=== PATIENT | female | born 1960 | race Asian ===

== ENCOUNTER 2017-01-23 10:12 | Emergency (ER) | payer MEDICAID ==
[~2017-01-23] VITALS: Ht 162.6 cm; Wt 68.0 kg
[2017-01-23 10:27] VITALS: Ht 162.6 cm; Wt 68.0 kg
[2017-01-23 12:33] LABS: URINE BLOOD (Dip) POC 1+ (NEGATIVE)
[2017-01-23 12:53] LABS: URINE BLOOD (Dip) POC Trace-intact (NEGATIVE)
[2017-01-23] MEDS ORDERED: HYDR-906 PO (13:21)
[2017-01-23] MEDS ORDERED: IBUP-1542 PO (13:21)
[2017-01-23] MEDS ORDERED: CEPH-443 PO (13:21)
[2017-01-23] MEDS ORDERED: SULF1TAB31 PO (13:21)
[2017-01-23] MEDS ORDERED: PHEN-537 PO (13:22)
[2017-01-23 13:28] VITALS: BP 128/66; PULSE 76; RESP 18; TEMP 98.2
--- NOTE | 2017-01-23 13:30 | ERD ---
ER Documentation Chief Complaint Date/Time DATE: 01/23/17 TIME: 13:24 Chief Complaint PAINFUL URINATION X 1 WEEK , FEVER X 4 DAYS HPI Patient is a 65-year-old female presents to the emergency department with painful urination 1 week. Patient states she has burning pain when urinating. Patient also states she had a low-grade temperature over the last 4 days. Patient reports temperature of 99 Fahrenheit. Patient states she last took Advil at 2 PM yesterday. Patient did not take any antipyretics today. Patient denies any frequency, urgency or hematuria. Patient denies any abdominal pain, nausea, vomiting. Patient states she does feel as if there is a "small ball" within her vagina which is extremely painful to touch. She denies any vaginal discharge or excessive vaginal bleeding. Patient also complaining of excessive vaginal dryness. ROS All systems reviewed and are negative except as per history of present illness. Medications Home Meds Active Scripts Phenazopyridine Hcl* (Pyridium*) 100 Mg Tab, 100 MG PO TID, #12 TAB Prov:DEISI SALAZAR-C 01/23/17 Hydrocodone/Acetaminophen ([place] 5-325 Tablet) 1 Each Tablet, 1 TAB PO Q6H Y for PAIN, #7 TAB Prov:DEISI SALAZAR-C 01/23/17 Ibuprofen* (Motrin*) 600 Mg Tab, 600 MG PO Q6, #30 TAB Prov:DEISI SALAZAR-C 01/23/17 Cephalexin* (Keflex*) 500 Mg Capsule, 500 MG PO QID for 7 Days, CAP Prov:DEISI SALAZAR-C 01/23/17 Sulfamethoxazole/Trimethoprim* (Bactrim Ds* Tablet) 1 Each Tablet, 1 TAB PO BID , #14 TAB Prov:DEISI SALAZAR-C 01/23/17 PMhx/Soc History of Surgery: No Anesthesia Reaction: No Hx Neurological Disorder: No Hx Respiratory Disorders: No Hx Cardiac Disorders: No Hx Psychiatric Problems: No Hx Miscellaneous Medical Probl: No Hx Alcohol Use: No Hx Substance Use: No Hx Tobacco Use: No FmHx Family History: No diabetes Physical Exam Vitals Vital Signs Date Time Temp Pulse Resp B/P Pulse Ox O2 Delivery O2 Flow Rate FiO2 01/23/17 13:28 98.2 76 18 128/66 98 Room Air 5/8/17 10:27 99.8 90 18 131/68 98 Physical Exam GENERAL: Well-developed, well-nourished female. Appears in no acute distress. HEAD: Normocephalic, atraumatic. EYES: Pupils are equally reactive bilaterally. EOMs grossly intact. No conjunctival erythema. ENT: Moist mucous membranes. No uvula deviation. No kissing tonsils. NECK: Supple. No meningismus. Normal range of motion of the neck. LUNG: Clear to auscultation bilaterally. No rhonchi, wheezing, rales or coarse breath sounds. HEART: Regular rate and rhythm. No murmurs, rubs or gallops. ABDOMEN: No scars, ecchymosis or rashes noted. Soft, nondistended. Tender to palpation in the suprapubic region. Positive bowel sounds in all four quadrants. No rebound tenderness, no guarding. (-) McBurney's point tenderness. No CVA tenderness. FEMALE GENITALIA: Normal external female genitalia. Normal vaginal mucosal erythematous without any lesions. 2 cm circular mass noted in the 4 o'clock position. No active bleeding or drainage noted. Tender to touch. No fluctuance or induration noted. BACK: No midline tenderness. EXTREMITIES: Equal pulses bilaterally. No peripheral clubbing, cyanosis or edema. No unilateral leg swelling. NEUROLOGIC: Alert and oriented. Moving all four extremities without any difficulty. Normal speech. Steady gait. SKIN: Normal color. Warm and dry. No rashes or lesions. Results 24 hrs Laboratory Tests Test 01/23/17 12:34 01/23/17 12:54 Bedside Urine pH (LAB) 5.5 5.5 Bedside Urine Protein (LAB) Negative Negative Bedside Urine Glucose (UA) Negative Negative Bedside Urine Ketones (LAB) Negative Negative Bedside Urine Blood 1+ Trace-intact Bedside Urine Nitrite (LAB) Negative Negative Bedside Urine Leukocyte Esterase (L Negative Negative Procedures/MDM MEDICAL DECISION MAKING: This is a 56-year-old female who presents with dysuria and intermittent fevers. Vital signs were reviewed. Patient was afebrile. U dip was negative for acute infection. 1+ hematuria was noted. Pelvic exam did show signs of a possible Bartholin's cyst abscess. At this time there is no indication for incision and drainage. Patient was advised she will need to follow-up with SOFTWARE MANAGER for further management of her symptoms. Given these findings, the patient's presentation is most consistent with dysuria and Bartholin's cyst abscess. I have a much lower clinical concern for UTI, pyelonephritis, nephrolithiasis, appendicitis, diverticulitis, constipation, lipoma. PRESCRIPTIONS: Pyridium, Keflex, Bactrim, ibuprofen, Azusa DISCHARGE: At this time, patient is stable for discharge and outpatient management. Sitz baths discussed with the patient. I have instructed the patient to follow-up with his/her primary care physician in 1-2 days. She was advised that she will need to follow-up with an SOFTWARE MANAGER in the next 1-2 days. Referral list provided. I have instructed the patient to promptly return to the ER at any time for any new or worsening symptoms including increased pain, fever, nausea, vomiting, urinary changes or weakness. The patient and/or family expressed understanding of and agreement with this plan. All questions were answered. Home care instructions were provided. Departure Diagnosis: Primary Impression: Bartholin's gland abscess Additional Impression: Dysuria Condition: Stable Patient Instructions: Bartholin's Cyst (I And D), Dysuria Referrals: [facility] YOU HAVE RECEIVED A MEDICAL SCREENING EXAM AND THE RESULTS INDICATE THAT YOU DO NOT HAVE A CONDITION THAT REQUIRES URGENT TREATMENT IN THE EMERGENCY DEPARTMENT. FURTHER EVALUATION AND TREATMENT OF YOUR CONDITION CAN WAIT UNTIL YOU ARE SEEN IN YOUR DOCTORS OFFICE WITHIN THE NEXT 1-2 DAYS. IT IS YOUR RESPONSIBILITY TO MAKE AN APPOINTMENT FOR FOLOW-UP CARE. IF YOU HAVE A PRIMARY DOCTOR --you should call your primary doctor and schedule an appointment IF YOU DO NOT HAVE A PRIMARY DOCTOR YOU CAN CALL OUR PHYSICIAN REFERRAL HOTLINE AT IF YOU CAN NOT AFFORD TO SEE A PHYSICIAN YOU CAN CHOSE FROM THE FOLLOWING [facility] CLINICS [facility] [address] [facility] [address] [facility] [address] [facility] [address] [facility]. [facility] [address] [facility]. [facility]. [address] [facility]. [facility] YOU HAVE RECEIVED A MEDICAL SCREENING EXAM AND THE RESULTS INDICATE THAT YOU DO NOT HAVE A CONDITION THAT REQUIRES URGENT TREATMENT IN THE EMERGENCY DEPARTMENT. FURTHER EVALUATION AND TREATMENT OF YOUR CONDITION CAN WAIT UNTIL YOU ARE SEEN IN YOUR DOCTORS OFFICE WITHIN THE NEXT 1-2 DAYS. IT IS YOUR RESPONSIBILITY TO MAKE AN APPOINTMENT FOR FOLOW-UP CARE. IF YOU HAVE A PRIMARY DOCTOR --you should call your primary doctor and schedule and appointment IF YOU DO NOT HAVE A PRIMARY DOCTOR YOU CAN CALL OUR PHYSICIAN REFERRAL HOTLINE AT . IF YOU CAN NOT AFFORD TO SEE A PHYSICIAN YOU CAN CHOSE FROM THE FOLLOWING [facility] INSTITUTIONS: [facility] [address] [place] [address] [facility] [address] [place] [address] [facility] [address] [place] [address] SOFTWARE MANAGER [place] [address] [facility] [address] [place] [address] OFFICE FAX ALEE STALLWORTH [address] [place], [place] [id number] [facility] [address] [place] [address] JUAN A PETERSENREVA [address] [facility], [address], [facility] [address] [address] [address] [place] [address] [facility] [address] [place], [place] [id number] [address] [facility] [id number] [address], [facility] [address] [address] [facility] [address] [facility] [address], [facility] [address] [address] [address] [place] [address] Additional Instructions: Call your primary care doctor/OBGYN TOMORROW for an appointment during the next 1-2 days.See the doctor sooner or return here if your condition worsens before your appointment time. See OBGYN for further management. See referral list. DEISI SALAZAR PA-C January 23, 2017 13:30
== END 2017-01-23 13:29 | disposition home or self-care (01) ==
LOC: FTE 10:12
DX: N75.1 Abscess of Bartholin's gland (principal)
CPT/HCPCS: 81003; 99284

== ENCOUNTER 2017-01-29 10:44 | Inpatient (IN) | payer MEDICAID ==
[~2017-01-29] VITALS: Ht 162.6 cm; Wt 67.0 kg
[~2017-01-29 10:44] MED LIST: CEPH-443 PO; HYDR-906 PO; IBUP-1542 PO; PHEN-537 PO; SULF1TAB31 PO
[2017-01-29] MEDS ORDERED: SOD CHLORIDE 0.9% 500 ML IV STA (11:25)
[2017-01-29] MEDS ORDERED: METOCLOPRAMIDE 10 MG INJ IV STA (11:25)
--- NOTE | 2017-01-29 11:34 | ERD ---
ER Documentation Chief Complaint Date/Time DATE: 01/29/17 TIME: 11:31 Chief Complaint "i cant walk i cant sleep, entire body hurts and headache" normal neuro HPI Patient is a 56-year-old female who presents with sudden onset, constant, severe headache for 3 days. Patient reports several episodes of vomiting, most recently 2 episodes yesterday, nonbloody, nonbilious. Patient denies diarrhea. Patient reports fever 1 week ago associated with cough. She states that fever and cough have not resolved. She denies chest pain, shortness of breath, diarrhea, abdominal pain. She denies dysuria, hematuria. She reports neck stiffness. She also reports back pain radiating to bilateral legs. ROS All systems reviewed and are negative except as per history of present illness. Medications Home Meds Active Scripts Ibuprofen* (Motrin*) 600 Mg Tab, 600 MG PO Q6, #30 TAB Prov:DEISI SALAZAR PA-C 01/23/17 Discontinued Scripts Phenazopyridine Hcl* (Pyridium*) 100 Mg Tab, 100 MG PO TID, #12 TAB Prov:DEISI SALAZAR PA-C 01/23/17 Hydrocodone/Acetaminophen ([place] 5-325 Tablet) 1 Each Tablet, 1 TAB PO Q6H Y for PAIN, #7 TAB Prov:DEISI SALAZAR PA-C 01/23/17 Cephalexin* (Keflex*) 500 Mg Capsule, 500 MG PO QID for 7 Days, CAP Prov:DEISI SALAZAR PA-C 01/23/17 Sulfamethoxazole/Trimethoprim* (Bactrim Ds* Tablet) 1 Each Tablet, 1 TAB PO BID , #14 TAB Prov:DEISI SALAZAR PA-C 01/23/17 Allergies Allergies: Coded Allergies: No Known Allergy (Unverified , 01/29/17) PMhx/Soc Past medical history: None Past surgical history: None Social history: Denies tobacco or alcohol. History of Surgery: No Anesthesia Reaction: No Hx Neurological Disorder: No Hx Respiratory Disorders: No Hx Cardiac Disorders: No Hx Psychiatric Problems: No Hx Miscellaneous Medical Probl: No Hx Alcohol Use: No Hx Substance Use: No Hx Tobacco Use: No FmHx Family History: No coronary disease, No diabetes Physical Exam Vitals Vital Signs Date Time Temp Pulse Resp B/P Pulse Ox O2 Delivery O2 Flow Rate FiO2 01/29/17 12:27 98.2 94 24 138/77 100 Room Air 01/29/17 10:49 98.7 92 18 126/83 99 Physical Exam Const: Alert, mild distress Head: Atraumatic Eyes: Normal Conjunctiva, no pallor, no icterus ENT: Normal External Ears, Nose and Mouth. Moist mucous membranes Neck: Slightly limited range of motion. Neck stiffness. Resp: Clear to auscultation bilaterally, no wheezes, no rales Cardio: Regular rate and rhythm, no murmurs Abd: Soft, non tender, non distended. Normal bowel sounds Skin: No petechiae or rashes Back: No midline or flank tenderness Ext: No cyanosis, or edema Neur: Awake and alert, cranial nerves II through XII intact bilaterally, strength incision full in 4 extremities. Psych: Normal Mood and Affect Result Diagram: 01/29/17 1150 01/29/17 1150 Results 24 hrs Laboratory Tests Test 01/29/17 11:50 01/29/17 13:48 01/29/17 14:09 White Blood Count 9.810^3/ul Red Blood Count 5.0710^6/ul Hemoglobin 13.1g/dl Hematocrit 40.7% Mean Corpuscular Volume 80.3fl Mean Corpuscular Hemoglobin 25.8pg Mean Corpuscular Hemoglobin Concent 32.2g/dl Red Cell Distribution Width 13.3% Platelet Count 52080^3/UL Mean Platelet Volume 10.8fl Neutrophils % 62.1% Lymphocytes % 29.6% Monocytes % 4.3% Eosinophils % 2.9% Basophils % 0.3% Nucleated Red Blood Cells % 0.0/100WBC Neutrophils # 6.110^3/ul Lymphocytes # 2.910^3/ul Monocytes # 0.410^3/ul Eosinophils # 0.310^3/ul Basophils # 0.010^3/ul Nucleated Red Blood Cells # 0.010^3/ul Prothrombin Time 12.4Sec Prothrombin Time Ratio 1.0 INR International Normalized Ratio 0.92 Activated Partial Thromboplast Time 24.4Sec Sodium Level 138mmol/L Potassium Level 3.7mmol/L Chloride Level 101mmol/L Carbon Dioxide Level 28mmol/L Anion Gap 13 Blood Urea Nitrogen 12mg/dl Creatinine 0.70mg/dl Glucose Level 137mg/dl Calcium Level 9.1mg/dl Serum HCG, Qualitative NEGATIVE CSF Tubes Submitted 4 CSF Volume 3.5ml CSF Appearance SLIGHTLY HAZY CSF Color COLORLESS CSF WBC 1274/uL CSF RBC 0/uL CSF Cell Count Tube # TUBE#4 CSF Total Cells Counted 100 CSF Neutrophils % 4% CSF Lymphocytes % 87% CSF Monocytes % 9% CSF Crenated Cells 0% CSF Glucose 64mg/dl CSF Total Protein 369mg/dl Urine Color LT. YELLOW Urine Clarity CLEAR Urine pH 6.0 Urine Specific [place] 1.010 Urine Ketones NEGATIVE Urine Nitrite NEGATIVE Urine Bilirubin NEGATIVE Urine Urobilinogen 0.2 E.U./dL Urine Leukocyte Esterase NEGATIVE Urine Microscopic RBC 2-5/HPF Urine Microscopic WBC 5-10/HPF Urine Epithelial Cells FEW Urine Bacteria MANY Urine Mucus MANY Urine Hemoglobin TRACE Urine Glucose NEGATIVE% Urine Total Protein NEGATIVE Current Medications Medications (Trade) Dose Ordered Sig/Niurka Route PRN Reason Start Time Stop Time Status Last Admin Dose Admin Sodium Chloride (NS) 500 ml @ 500 mls/hr Q1H STAT IV 01/29/17 11:25 01/29/17 12:24 DC 01/29/17 12:27 Metoclopramide HCl 10 mg 10 mg ONCE STAT IV 01/29/17 11:25 01/29/17 11:29 DC 01/29/17 12:15 Ceftriaxone Sodium (Rocephin) 50 ml @ 100 mls/hr ONCE ONCE IVPB 01/29/17 15:30 01/29/17 15:59 Morphine Sulfate (morphine) 4 mg ONCE STAT IV 01/29/17 15:09 01/29/17 15:10 DC 01/29/17 15:34 Ondansetron HCl (Zofran Inj) 4 mg BRIDGE ORDER PRN IV NAUSEA AND/OR VOMITING 01/29/17 15:30 01/30/17 15:29 Acetaminophen (Tylenol Tab) 650 mg ER BRIDGE PRN PO MILD PAIN/FEVER 01/29/17 15:30 01/30/17 15:29 Procedures/MDM Lumbar Puncture by me: Patient consented, time out performed, sterilely prepped/draped, anesthetized locally. Anesthesia: 1% lidocaine locally Location: L3-4 interspace Technique: 20 gauge needle with stylet for entry and removal of needle Results: Clear CSF fluid, 4 cc No post procedure complications, bleeding, numbness or weakness. MDM: Patient is a 56-year-old female who presents with severe headache for the last 3 days. Patient is also experienced neck stiffness, fever and vomiting. CT scan was done prior to LP, and is unremarkable. LP shows elevated WBC count in the cerebrospinal fluid with elevated protein, no RBCs, and normal glucose. This is likely due to a viral meningitis, but I cannot exclude atypical bacterial infection. The patient was given 2 g of ceftriaxone, and will be admitted to the hospital pending CSF cultures. The patient's urine did have a few leukocytes and a large number of bacteria. Blood and urine cultures were sent prior to antibiotic administration. The patient does not have signs of sepsis. The patient states that her headache is somewhat improved after receiving IV fluids and Reglan. Departure Diagnosis: Primary Impression: Meningitis Condition: Stable DANIELA BIRD MD January 29, 2017 11:34
[2017-01-29 12:04] LABS: ADD SCAN DIFF NO
[2017-01-29 12:06] LABS: BASOPHILS % 0.3 % (0.0-2.0); EOSINOPHILS # 0.3 10^3/ul (0.0-0.5); EOSINOPHILS % 2.9 % (0.0-7.0); HEMATOCRIT 40.7 % (37.0-47.0); HEMOGLOBIN 13.1 g/dl (12.0-16.0); LYMPHOCYTES # 2.9 10^3/ul (0.8-2.9); LYMPHOCYTES % 29.6 % (15.0-51.0); MEAN CORPUSCULAR HEMOGLOBIN 25.8 pg (29.0-33.0); MEAN CORPUSCULAR HGB CONC 32.2 g/dl (32.0-37.0); MEAN CORPUSCULAR VOLUME 80.3 fl (82.0-101.0); MEAN PLATELET VOLUME 10.8 fl (7.4-10.4); MONOCYTE # 0.4 10^3/ul (0.3-0.9); MONOCYTES % 4.3 % (0.0-11.0); NEUTROPHIL # 6.1 10^3/ul (1.6-7.5); NEUTROPHILS % 62.1 % (39.0-77.0); PLATELET COUNT 237 10^3/UL (140-415); RED BLOOD COUNT 5.07 10^6/ul (4.20-5.40); RED CELL DISTRIBUTION WIDTH 13.3 % (11.5-14.5); WHITE BLOOD COUNT 9.8 10^3/ul (4.8-10.8)
--- NOTE | 2017-01-29 12:09 | RADRPT ---
PROCEDURE: XR Chest. CLINICAL INDICATION: chest pain, headache TECHNIQUE: Single frontal view of the chest was obtained COMPARISON: None FINDINGS: The heart and mediastinum are within normal limits. The lungs are clear. There is no pleural effusion or pneumothorax. RPTAT: AA IMPRESSION: No acute disease. .Victoriano Mattson MD, MD Date Time Electronically viewed and signed by .Victoriano Mattson MD, on 01/29/2017 12:09 .S/
--- NOTE | 2017-01-29 12:15 | RADRPT ---
PROCEDURE: CT Brain without contrast. CLINICAL INDICATION: Headaches. TECHNIQUE: A CT of the brain was performed on multidetector high-resolution CT scanner utilizing a xial sections from the skull base through the vertex without contrast. One or more of the following dose reduction techniques were used: Automated exposure control, Adjustment of the mA and/or kV acc ording to patient size, and/or use of iterative reconstruction technique. DOSE: CTDI = 45 mGy and the DLP = 720 mGy-cm. COMPARISON: None available FINDINGS: 3 mm right anterior temporal extra-axial calcification within the right middle cranial fossa. No acute intracranial hemorrhage, significant mass effect or midline shift. The sandoval-white different iation is grossly preserved. The ventricles are normal in size for age. No significant opacification of the visualized paranasal sinuses or mastoids. IMPRESSION: No acute intracranial findings. 3 mm right anterior temporal extra-axial calcification within the right middle cranial fossa. 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 However, if symptoms persist consider outpatient brain MRI with an d without contrast for further evaluation. RPTAT: AA .Polo Acuna MD, MD Date Time Electronically viewed and signed by .Polo Acuna MD, MD on 01/29/2017 12:15 .T/
[2017-01-29 12:26] LABS: INR 0.92; PROTIME 12.4 Sec (12.2-14.2)
[2017-01-29 12:27] VITALS: TEMP 98.2
[2017-01-29 12:27] LABS: PARTIAL THROMBOPLASTIN TIME 24.4 Sec (25.0-35.0)
[2017-01-29 12:37] LABS: CALCIUM 9.1 mg/dl (8.4-10.2); CREATININE 0.7 mg/dl (0.44-1.00); POTASSIUM 3.7 mmol/L (3.5-5.1)
[2017-01-29 14:24] LABS: GLUCOSE,CSF 64 mg/dl (50-80)
[2017-01-29 14:31] LABS: ADD UMIC YES; URINE BILIRUBIN (Dip) NEGATIVE (NEGATIVE); URINE BLOOD (Dip) TRACE (NEGATIVE); URINE COLOR LT. YELLOW (YELLOW); URINE GLUCOSE (Dip) NEGATIVE (NEGATIVE); URINE KETONES (Dip) NEGATIVE (NEGATIVE); URINE LEUKOCYTE ESTERASE (Dip) NEGATIVE (NEGATIVE); URINE NITRITE (Dip) NEGATIVE (NEGATIVE); URINE TOTAL PROTEIN (Dip) NEGATIVE (NEGATIVE); URINE UROBILINOGEN (Dip) 0.2 E.U./dL (0.1-1.0)
[2017-01-29 14:49] LABS: # OF CELLS COUNTED 100
[2017-01-29 14:53] LABS: BACTERIA,URINE MANY; MUCUS,URINE MANY
[2017-01-29 14:57] LABS: CSF COLOR COLORLESS
[2017-01-29 15:01] LABS: CSF VOLUME 3.5 ml
[2017-01-29 15:02] LABS: %CREANATED RBC CSF 0 %; CSF#TUBE COUNT TUBE#4; CSF#TUBES REC'D 4
[2017-01-29] MEDS ORDERED: morphine 4 MG/ML VIAL IV STA (15:09)
[2017-01-29] MEDS ORDERED: ACETAMINOPHEN 325 MG TAB PO PRN (15:30)
[2017-01-29] MEDS ORDERED: CEFTRIAXONE 2 GM/50 ML (PMX) 50 ML IVPB ONE (15:30)
[2017-01-29] MEDS ORDERED: ONDANSETRON 4 MG INJ IV PRN ×2 (15:30→17:00)
[2017-01-29 17:00] VITALS: Ht 162.6 cm; Wt 67.0 kg
[2017-01-29] MEDS ORDERED: ACETAMINOPHEN 650 MG SUPP PR PRN (17:00)
[2017-01-29] MEDS ORDERED: HYDROCODONE/APAP (5/325) TAB PO PRN ×2 (17:00)
[2017-01-29] MEDS ORDERED: MAGNESIUM HYDROXIDE 30ML CUP PO PRN (17:00)
[2017-01-29] MEDS ORDERED: ACET/BUTAL/CAFF TAB PO PRN (17:00)
[2017-01-29] MEDS ORDERED: NACL 0.9% 3 ML SYG IV SCH (17:00)
[2017-01-29] MEDS ORDERED: DOCUSATE SODIUM 100 MG CAP PO PRN (17:00)
[2017-01-29] MEDS ORDERED: BISACODYL 10 MG SUPP PR PRN (17:00)
--- NOTE | 2017-01-29 17:04 | HP ---
Date/Time of Note Date/Time of Note DATE: 01/29/17 TIME: 16:59 Assessment/Plan VTE Prophylaxis VTE Prophylaxis Intervention: heparin Assessment/Plan Chief Complaint/Hosp Course Impression and plan 1. Meningitis. Patient seen with elevated protein and white blood cell in lumbar tap with normal glucose. Likely viral meningitis. Rule out atypical bacterial meningitis. Will get ID consult to follow. Off antibiotics at this time however it is noted the patient did receive Rocephin in the ER. Continue with analgesics as well as IV hydration as needed. Will provide with analgesics as well. 2. History of seasonal allergies. She will be resumed on her Claritin 3. Cephalgia secondary to disposition and plan: #1 analgesics as needed. Admission process 40 minutes Discussed plan of care with Dr. Najera Problems: HPI/ROS Admit Date/Time Admit Date/Time January 29, 2017 at 15:24 Hx of Present Illness This is a 56-year-old female with only reported past medical history of allergies came to [facility] due to reports of headache. Patient does report that her headache was for 3 days duration with associated nausea and vomiting nonbilious nonbloody. She denied any shortness of breath or chest pain. She did report having some photophobia as well as dizziness whenever she moves. She also had some nuchal rigidity associated with it as well. She reports this is a first incidence and denies any recent travel. She reports living at home with her and no other sick contacts. She did come to [facility] and did have CT scan of her brain done that did show a 3 mm right anterior temporal extra-axial calcification within the right middle cranial fossa likely a dural calcification. Additionally she had lumbar tap did show her to have elevated CSF protein as well as elevated CSF white blood cell but normal glucose. Patient is afebrile at present but she does report having subjective fevers as high as 103 at home. She reports her pain is 10 out of 10 in intensity. No motor deficit seen. She is still seen with +5 strength in bilateral upper and lower extremities. She is able to carry on coherent conversation. She is ambulatory. We will evaluate her for the aformentiond issues ROS 12 point review of systems obtained entirely negative except that mentioned in history of present PMH/Family/Social Past Medical History Medical/surgical history 1. Appendectomy 2. Seasonal allergies Family History Significant Family History: no pertinent family hx Social History Alcohol Use: none Smoking Status: Never smoker Drug Use: none Exam/Review of Systems Vital Signs Vitals Vital Signs Date Time Temp Pulse Resp B/P Pulse Ox O2 Delivery O2 Flow Rate FiO2 01/29/17 16:06 77 20 130/77 100 Room Air 01/29/17 12:27 98.2 Exam Constitutional: alert, distress (Secondary to persistent headache), oriented Neck: supple, No jvd Respiratory: clear to auscultation, normal air movement Cardiovascular: regular rate and rhythm Gastrointestinal: non-tender, soft Extremities: normal pulses Neurological: WET PROCESS HEAD MILLER II-XII intact, nl mental status, nl speech Skin: other (Noted with anal fissure) Labs Result Diagram: 01/29/17 1150 01/29/17 1150 Medications Medications Current Medications Sodium Chloride (NS) 1,000 ml @ 80 mls/hr [id number] IV ; Start 01/29/17 at 16:40 ; Status UNV Ondansetron HCl (Zofran Inj) 4 mg Q6H PRN IV NAUSEA AND/OR VOMITING; Start at 17:00; Status UNV Acetaminophen (Tylenol Tab) 650 mg Q6H PRN PO PAIN LEVEL 1-3 OR FEVER; Start at 17:00; Status UNV Acetaminophen (Tylenol Supp) 650 mg Q6H PRN MS PAIN LEVEL 1-3 OR FEVER; Start 01/29/17 at 17:00; Status UNV Acetaminophen/ Hydrocodone Bitart ([place] (5/325)) 1 tab Q6H PRN PO MODERATE PAIN LEVEL 4-6; Start 01/29/17 at 17:00; Status UNV Acetaminophen/ Hydrocodone Bitart ([place] (5/325)) 2 tab Q6H PRN PO SEVERE PAIN LEVEL 7-10; Start 01/29/17 at 17:00; Status UNV Morphine Sulfate (morphine) 2 mg Q4H PRN IV SEVERE PAIN LEVEL 7-10; Start 01/29 at 17:00; Status UNV Docusate Sodium (Colace) 100 mg Q12H PRN PO CONSTIPATION; Start 01/29/17 at 17: 00; Status UNV Magnesium Hydroxide (Milk Of Mag) 30 ml DAILY PRN PO CONSTIPATION; Start at 17:00; Status UNV Bisacodyl (Dulcolax Supp) 10 mg DAILY PRN MS CONSTIPATION; Start 01/29/17 at 17 :00; Status UNV Famotidine (Pepcid Iv) 20 mg Q12 IV ; Start 01/29/17 at 21:00; Status UNV Heparin Sodium (Porcine) (Heparin (5000 Units/0.5 ml)) 5,000 unit Q12 SC ; Start 01/29/17 at 21:00; Status UNV GERALDO BURGOS January 29, 2017 17:04
[2017-01-29 17:27] VITALS: BP 123/56; RESP 16
[2017-01-29] MEDS: FAMOTIDINE 20 MG INJ IV SCH (20:08)
[2017-01-29] MEDS: SOD CHLORIDE 0.9% 1,000 ML IV SCH (20:08)
[2017-01-29] MEDS: HEPARIN 5,000 UNIT/0.5 ML VIAL SC SCH (20:10)
[2017-01-29 20:23] VITALS: BP 133/79; PULSE 94; RESP 18
[2017-01-29] MEDS: morphine 2 MG INJ IV PRN (20:27)
[2017-01-29] MEDS ORDERED: VANCOMYCIN IV PER PHARMACY XX SCH (21:00)
--- NOTE | 2017-01-29 21:43 | CONS ---
DATE OF ADMISSION: 01/29/2017 DATE OF CONSULTATION: 01/29/2017 TYPE OF CONSULTATION: Infectious disease. REASON FOR CONSULTATION: Antibiotic management. HISTORY OF PRESENT ILLNESS: Talya Zuniga is a 56-year-old female with a history of allergies who c omes to the [facility] with headaches. Her headaches have been going on for 3 day s, associated with nausea and vomiting. She denies shortness of breath or chest pain. She had some photophobia as well as dizziness when she moved. She also had some nuchal rigidity associated with it as well. She has no recent travel. She lives with her . She did come to [facility] and had a CT scan of her brain done that showed a 3 mm right anterior temporal extra-axial ailyn cification within the right middle cranial fossa, likely a dural calcification. She had a lumbar ta p which showed an elevated CSF protein, elevated CSF white blood cells but normal glucose. She is a febrile but does report having subjective fevers up to 103 degrees. She complains of headaches that are 10/10. She is able to carry on a conversation. On admission, her white count was 9.8, H and H of 13.1 and 40.7, platelet count 237,000. Her BUN and creatinine were 12 over 0.7. A urine was ne gative for nitrite and leukocyte esterase. Her spinal tap showed 1274 cells, 96% lymphocytes and mo nocytes, 4% neutrophils, glucose of 64, protein of 369. Her spinal tap is pending. A chest x-ray s hows no acute disease. The patient was begun on ceftriaxone. PAST MEDICAL HISTORY: Operations: Status post appendectomy. FAMILY HISTORY: Noncontributory. SOCIAL HISTORY: She does not smoke, drink or abuse drugs. ALLERGIES: SEASONAL ALLERGIES. NONE TO PENICILLIN, SULFA OR FOODS. MEDICATIONS: Per chart. REVIEW OF SYSTEMS: As per HPI. PHYSICAL EXAMINATION: GENERAL: The patient is a well-developed, well-nourished female who is alert, responsive, complaini ng of headaches. No acute distress. VITAL SIGNS: Stable. She is afebrile. SKIN: Without generalized rash. HEENT: Within normal limits. NECK: Supple. LYMPH NODES: None palpable. CHEST: Decreased breath sounds at the bases. HEART: Without murmur or gallop. ABDOMEN: Soft, nontender without organosplenomegaly or masses. EXTREMITIES: Without cyanosis, clubbing, edema. RECTAL AND GENITAL: Deferred. NEUROLOGICAL: Within normal limits. She has normal mental status. She does have an anal fissure. IMPRESSION AND PLAN: The patient has most likely viral meningitis. She is currently only on cefota yoel. Will add vancomycin to her regimen until we get the results of her tests. However, with a wh ite count as stated with mostly monocytosis, it is possible she has bacterial process, but I do not think so. I think that she has a viral process, but we will cover her for meningitis until her cult ures come back. The fact that she is able to talk and to make sense points certainly against a bact erial meningitis. I will dictate my findings to the hospitalist. Dictated By: RC NOE MD, JD/MIRANDA Conf#: [id number] DID#: [id number]
[2017-01-30] MEDS: VANCOMYCIN 1 GM in NS 250 ML IVPB SCH ×3 (00:12→21:36)
[2017-01-30] MEDS: morphine 2 MG INJ IV PRN (00:42)
[2017-01-30] MEDS: SOD CHLORIDE 0.9% 1,000 ML IV SCH (06:22)
[2017-01-30 07:16] LABS: ALBUMIN 3.8 g/dl (3.3-4.9); ALBUMIN/GLOBULIN RATIO 1.11; BILIRUBIN,INDIRECT 0.1 mg/dl (0-1.1); BILIRUBIN,TOTAL 0.1 mg/dl (0.2-1.3); CALCIUM 8.5 mg/dl (8.4-10.2); CHOL/HDL RATIO 5.8 RATIO; CREATININE 0.67 mg/dl (0.44-1.00); PHOSPHORUS 4.4 mg/dl (2.5-4.9); POTASSIUM 3.7 mmol/L (3.5-5.1); TOTAL PROTEIN 7.2 g/dl (6.1-8.1)
[2017-01-30 07:27] LABS: T3 UPTAKE 27.7 % (23.5-40.5)
[2017-01-30 07:35] VITALS: BP 114/63; RESP 18
[2017-01-30 07:41] LABS: THYROID STIMULATING HORMONE 2.71 MIU/L (0.465-4.680)
[2017-01-30] MEDS: LORATADINE 10 MG TAB PO SCH (08:51)
[2017-01-30] MEDS: FAMOTIDINE 20 MG INJ IV SCH (08:51)
[2017-01-30] MEDS: ACETAMINOPHEN 325 MG TAB PO PRN ×2 (08:51→18:44)
[2017-01-30] MEDS: HEPARIN 5,000 UNIT/0.5 ML VIAL SC SCH ×2 (08:54→21:50)
[2017-01-30] MEDS ORDERED: morphine 2 MG INJ IV PRN (11:00)
--- NOTE | 2017-01-30 11:13 | PN ---
Date/Time of Note Date/Time of Note DATE: 01/30/17 TIME: 11:08 Assessment/Plan VTE Prophylaxis VTE Prophylaxis Intervention: SCD's Lines/Catheters IV Catheter Type (from [facility]): Peripheral IV Urinary Cath still in place: No Assessment/Plan Assessment/Plan Assessment: 1. Meningitis. possibley viral as per ID 2. History of seasonal allergies.on claritin 3. Cephalgia secondary to menigitia 4. Acute Urinary retention Plan: D/c NS, start D51/2 NS at 50 cc/ hr then stop S/p ID consult, continue current IV abx until all cultures resulted BP stable afebrile Continue current care Ambulate with assistance Subjective 24 Hr Interval Summary Free Text/Dictation pt had a Episode of urinary retention but did not require catheter, she voided by herself, BP stable, S/p ID consult Exam/Review of Systems Vital Signs Vitals Vital Signs Date Time Temp Pulse Resp B/P Pulse Ox O2 Delivery O2 Flow Rate FiO2 01/30/17 07:35 98.7 94 18 114/63 93 01/29/17 20:23 Room Air Intake and Output 01/29/17 01/29/17 01/30/17 15:00 23:00 07:00 Intake Total 360 ml 1530 ml Balance 360 ml 1530 ml Exam GENERAL: The patient is a well-developed, well-nourished female who is alert, responsive, complaining of headaches. No acute distress. SKIN: Without generalized rash. HEENT: Within normal limits. NECK: Supple. LYMPH NODES: None palpable. CHEST: Decreased breath sounds at the bases. HEART: Without murmur or gallop. ABDOMEN: Soft, nontender without organosplenomegaly or masses. EXTREMITIES: Without cyanosis, clubbing, edema. RECTAL AND GENITAL: Deferred. NEUROLOGICAL: Within normal limits. She has normal mental status. She does have an anal fissure. Results Result Diagram: 01/29/17 1150 01/30/17 0545 Results 24 hrs Laboratory Tests Test 01/29/17 11:50 01/29/17 13:48 01/29/17 14:09 01/30/17 05:45 White Blood Count 9.8 Red Blood Count 5.07 Hemoglobin 13.1 Hematocrit 40.7 Mean Corpuscular Volume 80.3 L Mean Corpuscular Hemoglobin 25.8 L Mean Corpuscular Hemoglobin Concent 32.2 Red Cell Distribution Width 13.3 Platelet Count 237 Mean Platelet Volume 10.8 H Neutrophils % 62.1 Lymphocytes % 29.6 Monocytes % 4.3 Eosinophils % 2.9 Basophils % 0.3 Nucleated Red Blood Cells % 0.0 Neutrophils # 6.1 Lymphocytes # 2.9 Monocytes # 0.4 Eosinophils # 0.3 Basophils # 0.0 Nucleated Red Blood Cells # 0.0 Prothrombin Time 12.4 Prothrombin Time Ratio 1.0 INR International Normalized Ratio 0.92 Activated Partial Thromboplast Time 24.4 L Sodium Level 138 139 Potassium Level 3.7 3.7 Chloride Level 101 106 Carbon Dioxide Level 28 26 Anion Gap 13 11 Blood Urea Nitrogen 12 13 Creatinine 0.70 0.67 Glucose Level 137 135 Calcium Level 9.1 8.5 Serum HCG, Qualitative NEGATIVE CSF Tubes Submitted 4 CSF Volume 3.5 CSF Appearance SLIGHTLY HAZY CSF Color COLORLESS CSF WBC 1274 *H CSF RBC 0 CSF Cell Count Tube # TUBE#4 CSF Total Cells Counted 100 CSF Neutrophils % 4 CSF Lymphocytes % 87 CSF Monocytes % 9 CSF Crenated Cells 0 CSF Glucose 64 CSF Total Protein 369 H Urine Color LT. YELLOW Urine Clarity CLEAR Urine pH 6.0 Urine Specific [place] 1.010 Urine Ketones NEGATIVE Urine Nitrite NEGATIVE Urine Bilirubin NEGATIVE Urine Urobilinogen 0.2 E.U./dL Urine Leukocyte Esterase NEGATIVE Urine Microscopic RBC 2-5 Urine Microscopic WBC 5-10 Urine Epithelial Cells FEW Urine Bacteria MANY Urine Mucus MANY Urine Hemoglobin TRACE Urine Glucose NEGATIVE Urine Total Protein NEGATIVE Hemoglobin A1c 6.4 H Phosphorus Level 4.4 Magnesium Level 2.0 Total Bilirubin 0.1 L Direct Bilirubin 0.00 Indirect Bilirubin 0.1 Aspartate Amino Transf (AST/SGOT) 24 Alanine Aminotransferase (ALT/SGPT) 46 Alkaline Phosphatase 73 Total Protein 7.2 Albumin 3.8 Globulin 3.40 H Albumin/Globulin Ratio 1.11 Triglycerides Level 102 Cholesterol Level 232 H LDL Cholesterol, Calculated 172 HDL Cholesterol 40 Cholesterol/HDL Ratio 5.8 Thyroid Stimulating Hormone (TSH) 2.710 Free Thyroxine Index 2.74 Thyroxine (T4) 9.9 Triiodothyronine (T3) Uptake 27.7 Medications Medications Current Medications Sodium Chloride (NS) 1,000 ml @ 80 mls/hr [id number] IV Last administered on 01/29t 20:08; Admin Dose 80 MLS/HR; Start 01/29/17 at 16:40 Ondansetron HCl (Zofran Inj) 4 mg Q6H PRN IV NAUSEA AND/OR VOMITING Last administered on 01/29/17 20:01; Admin Dose 4 MG; Start 01/29/17 at 17:00 Acetaminophen (Tylenol Tab) 650 mg Q6H PRN PO PAIN LEVEL 1-3 OR FEVER Last administered on 01/30/17 08:51; Admin Dose 650 MG; Start 01/29/17 at 17:00 Acetaminophen (Tylenol Supp) 650 mg Q6H PRN [place] PAIN LEVEL 1-3 OR FEVER; Start 01/29/17 at 17:00 Acetaminophen/ Hydrocodone Bitart ([place] (5/325)) 1 tab Q6H PRN PO MODERATE PAIN LEVEL 4-6; Start 01/29/17 at 17:00 Acetaminophen/ Hydrocodone Bitart ([place] (5/325)) 2 tab Q6H PRN PO SEVERE PAIN LEVEL 7-10; Start 01/29/17 at 17:00 Morphine Sulfate (morphine) 2 mg Q4H PRN IV SEVERE PAIN LEVEL 7-10 Last administered on 01/30/17 00:42; Admin Dose 2 MG; Start 01/29/17 at 17:00 Docusate Sodium (Colace) 100 mg Q12H PRN PO CONSTIPATION; Start 01/29/17 at 17: 00 Magnesium Hydroxide (Milk Of Mag) 30 ml DAILY PRN PO CONSTIPATION; Start at 17:00 Bisacodyl (Dulcolax Supp) 10 mg DAILY PRN [place] CONSTIPATION; Start 01/29/17 at 17 :00 Famotidine (Pepcid Iv) 20 mg Q12 IV Last administered on 01/30/17 08:51; Admin Dose 20 MG; Start 01/29/17 at 21:00 Heparin Sodium (Porcine) (Heparin (5000 Units/0.5 ml)) 5,000 unit Q12 SC Last administered on 01/30/17 08:54; Admin Dose 5,000 UNIT; Start 01/29/17 at 21:00 Loratadine (Claritin) 10 mg DAILY PO Last administered on 01/30/17 08:51; Admin Dose 10 MG; Start 01/30/17 at 09:00 Acetaminophen/ Butalbital/ Caffeine 2 tab 2 tab Q4H PRN PO cephalgia; Start at 17:00 Vancomycin HCl (Vancocin) 250 ml @ 125 mls/hr Q12H IVPB Last administered on t 09:16; Admin Dose 125 MLS/HR; Start 01/29/17 at 22:00 Miscellaneous Information (*Rx Drug Level Order Reminder*) VANCOMYCIN TROUGH AT 0900 ONCE ONCE XX ; Start 01/31/17 at 09:00; Stop 01/31/17 at 09:01 LINDSAY REESE MD January 30, 2017 11:13
[2017-01-30] MEDS: D5W-0.45 NACL + KCL 10 MEQ 1,000 ML IV SCH (12:41)
[2017-01-30] MEDS ORDERED: CEFTRIAXONE 2 GM/50 ML (PMX) 50 ML IVPB SCH (16:00)
--- NOTE | 2017-01-30 17:18 | PN ---
DATE: 01/30/2017 INFECTIOUS DISEASE PROGRESS NOTE SUBJECTIVE: Patient is alert, feels much better. Looks comfortable, no fevers overnight. No CBC t his morning. BUN 13, creatinine 0.67. MICROBIOLOGY: CSF cultures pending. ANTIMICROBIALS: The patient is on: 1. IV vancomycin. 2. Rocephin. PHYSICAL EXAMINATION: GENERAL: This is a well-developed, well-nourished, middle-aged woman who is alert, in no distress. HEENT: Head atraumatic, normocephalic. Sclerae anicteric. Buccal mucosa dry. NECK: Supple, trachea midline. CHEST: Rise symmetrical. Breath sounds clear. HEART: S1, S2. ABDOMEN: Soft. Bowel tones present. EXTREMITIES: Without cyanosis. ASSESSMENT: 1. Viral meningitis, CSF cultures pending. 2. Systemic inflammatory response syndrome. PLAN: The patient is doing much better. We will continue her on current antimicrobials for now. A wait for final cultures. Dictated By: LAILA LOUISE STEVEDORE HOLD for RC ROME/MIRANDA Conf#: [id number] DID#: [id number]
[2017-01-30 20:23] VITALS: BP 139/79; RESP 18
[2017-01-30] MEDS: FAMOTIDINE 20 MG TAB PO SCH (21:35)
[2017-01-31] MEDS: ACETAMINOPHEN 325 MG TAB PO PRN (03:52)
[2017-01-31 06:13] LABS: ADD SCAN DIFF NO; CALCIUM 8.4 mg/dl (8.4-10.2); CREATININE 0.61 mg/dl (0.44-1.00); POTASSIUM 3.4 mmol/L (3.5-5.1)
[2017-01-31 06:16] LABS: HEMATOCRIT 36.2 % (37.0-47.0); HEMOGLOBIN 11.5 g/dl (12.0-16.0); MEAN CORPUSCULAR HEMOGLOBIN 25.6 pg (29.0-33.0); MEAN CORPUSCULAR HGB CONC 31.8 g/dl (32.0-37.0); MEAN CORPUSCULAR VOLUME 80.6 fl (82.0-101.0); MEAN PLATELET VOLUME 10.7 fl (7.4-10.4); PLATELET COUNT 240 10^3/UL (140-415); RED BLOOD COUNT 4.49 10^6/ul (4.20-5.40); RED CELL DISTRIBUTION WIDTH 12.9 % (11.5-14.5); WHITE BLOOD COUNT 6.4 10^3/ul (4.8-10.8)
[2017-01-31] MEDS: D5W-0.45 NACL + KCL 10 MEQ 1,000 ML IV SCH ×2 (07:30→23:51)
[2017-01-31 07:53] VITALS: BP 121/75; RESP 20
[2017-01-31 09:14] LABS: EOSINOPHILS # 0.4 10^3/ul (0.0-0.5); LYMPHOCYTES # 2.6 10^3/ul (0.8-2.9); MONOCYTE # 0.7 10^3/ul (0.3-0.9); NEUTROPHIL # 2.8 10^3/ul (1.6-7.5)
[2017-01-31] MEDS: LORATADINE 10 MG TAB PO SCH (09:40)
[2017-01-31] MEDS: FAMOTIDINE 20 MG TAB PO SCH ×2 (09:40→20:30)
[2017-01-31] MEDS: HEPARIN 5,000 UNIT/0.5 ML VIAL SC SCH ×2 (09:47→20:36)
[2017-01-31] MEDS: VANCOMYCIN 1 GM in NS 250 ML IVPB SCH (10:23)
--- NOTE | 2017-01-31 12:51 | CONS ---
Date/Time of Note Date/Time of Note DATE: 01/31/17 TIME: 12:50 Assessment/Plan Assessment/Plan Chief Complaint/Hosp Course SUBJECTIVE: Patient is alert and oriented, c/o headache, looks comfortable, no fevers. MICROBIOLOGY: CSF cultures negative. ANTIMICROBIALS: 1. IV vancomycin. 2. Rocephin. PHYSICAL EXAMINATION: GENERAL: This is a well-developed, well-nourished, middle-aged woman who is alert, in no distress. HEENT: Head atraumatic, normocephalic. Sclerae anicteric. Buccal mucosa dry. NECK: Supple, trachea midline. CHEST: Rise symmetrical. Breath sounds clear. HEART: S1, S2. ABDOMEN: Soft. Bowel tones present. EXTREMITIES: Without cyanosis. ASSESSMENT: 1. Viral meningitis, CSF cultures negative 2. Systemic inflammatory response syndrome. PLAN: Stable, will dc abx and observe, continue supportive care DW staff Problems: Consultation Date/Type/Reason Admit Date/Time January 29, 2017 at 15:24 Initial Consult Date Type of Consultation: ID Exam/Review of Systems Vital Signs Vitals Vital Signs Date Time Temp Pulse Resp B/P Pulse Ox O2 Delivery O2 Flow Rate FiO2 01/31/17 07:53 98.1 58 20 121/75 97 01/29/17 20:23 Room Air Intake and Output 01/30/17 01/30/17 01/31/17 15:00 23:00 07:00 Intake Total 650 ml 3460 ml 600 ml Balance 650 ml 3460 ml 600 ml Results Result Diagram: 01/31/17 0500 01/31/17 0500 Results 24 hrs Laboratory Tests Test 01/31/17 05:00 01/31/17 09:11 White Blood Count 6.4 # Red Blood Count 4.49 Hemoglobin 11.5 L Hematocrit 36.2 L Mean Corpuscular Volume 80.6 L Mean Corpuscular Hemoglobin 25.6 L Mean Corpuscular Hemoglobin Concent 31.8 L Red Cell Distribution Width 12.9 Platelet Count 240 Mean Platelet Volume 10.7 H Neutrophils % 43.0 Lymphocytes % 40.0 Monocytes % 11.0 Eosinophils % 6.0 Neutrophils # 2.8 Lymphocytes # 2.6 Monocytes # 0.7 Eosinophils # 0.4 Sodium Level 139 Potassium Level 3.4 L Chloride Level 106 Carbon Dioxide Level 27 Anion Gap 9 Blood Urea Nitrogen 8 Creatinine 0.61 Glucose Level 143 Calcium Level 8.4 Vancomycin Level Trough 9.0 L Medications Medications Current Medications Ondansetron HCl (Zofran Inj) 4 mg Q6H PRN IV NAUSEA AND/OR VOMITING Last administered on 01/29/17 20:01; Admin Dose 4 MG; Start 01/29/17 at 17:00 Acetaminophen (Tylenol Tab) 650 mg Q6H PRN PO PAIN LEVEL 1-3 OR FEVER Last administered on 01/31/17 03:52; Admin Dose 650 MG; Start 01/29/17 at 17:00 Acetaminophen (Tylenol Supp) 650 mg Q6H PRN [place] PAIN LEVEL 1-3 OR FEVER; Start 01/29/17 at 17:00 Acetaminophen/ Hydrocodone Bitart ([place] (5/325)) 1 tab Q6H PRN PO MODERATE PAIN LEVEL 4-6; Start 01/29/17 at 17:00 Acetaminophen/ Hydrocodone Bitart ([place] (5/325)) 2 tab Q6H PRN PO SEVERE PAIN LEVEL 7-10; Start 01/29/17 at 17:00 Docusate Sodium (Colace) 100 mg Q12H PRN PO CONSTIPATION; Start 01/29/17 at 17: 00 Magnesium Hydroxide (Milk Of Mag) 30 ml DAILY PRN PO CONSTIPATION; Start at 17:00 Bisacodyl (Dulcolax Supp) 10 mg DAILY PRN [place] CONSTIPATION; Start 01/29/17 at 17 :00 Heparin Sodium (Porcine) (Heparin (5000 Units/0.5 ml)) 5,000 unit Q12 SC Last administered on 01/31/17 09:47; Admin Dose 5,000 UNIT; Start 01/29/17 at 21:00 Loratadine (Claritin) 10 mg DAILY PO Last administered on 01/31/17 09:40; Admin Dose 10 MG; Start 01/30/17 at 09:00 Acetaminophen/ Butalbital/ Caffeine 2 tab 2 tab Q4H PRN PO cephalgia; Start at 17:00 Vancomycin HCl (Vancocin) 250 ml @ 125 mls/hr Q12H IVPB Last administered on 10:23; Admin Dose 125 MLS/HR; Start 01/29/17 at 22:00; Stop 01/31/17 at 13:00 Morphine Sulfate 1 mg 1 mg Q4H PRN IV SEVERE PAIN LEVEL 7-10; Start 01/30/17 at 11:00 Potassium Chloride/Dextrose/ Sod Cl 1,000 ml @ 50 mls/hr Q20H IV Last administered on 01/30/17 12:41; Admin Dose 50 MLS/HR; Start 01/30/17 at 11:30 Ceftriaxone Sodium (Rocephin) 50 ml @ 100 mls/hr Q24H IVPB Last administered on 01/30/17 15:36; Admin Dose 100 MLS/HR; Start 01/30/17 at 16:00 Famotidine 20 mg 20 mg Q12 PO Last administered on 01/31/17 09:40; Admin Dose 20 MG; Start 01/30/17 at 21:00 Vancomycin HCl/ Sodium Chloride (Vancocin/NS) 250 ml @ 83.333 mls/ hr Q12H IVPB ; Start 01/31/17 at 22:00 LAILA LOUISE NP January 31, 2017 12:51
--- NOTE | 2017-01-31 16:50 | PN ---
Date/Time of Note Date/Time of Note DATE: 01/31/17 TIME: 16:49 Assessment/Plan VTE Prophylaxis VTE Prophylaxis Intervention: SCD's Lines/Catheters [facility] Peripheral IV Urinary Cath still in place: No Assessment/Plan Assessment/Plan 1. Meningitis. possibley viral as per ID 2. History of seasonal allergies.on claritin 3. Cephalgia secondary to menigitia 4. Acute Urinary retention Plan: D/c NS, start D51/2 NS at 50 cc/ hr then stop S/p ID consult, continue current IV abx until all cultures resulted, Spinal fluid cx prelimiary result- negative Continue current care Ambulate with assistance Subjective 24 Hr Interval Summary Free Text/Dictation no headache, no fever, no chills Exam/Review of Systems Vital Signs Vitals Vital Signs Date Time Temp Pulse Resp B/P Pulse Ox O2 Delivery O2 Flow Rate FiO2 01/31/17 07:53 98.1 58 20 121/75 97 01/29/17 20:23 Room Air Intake and Output 01/30/17 01/30/17 01/31/17 15:00 23:00 07:00 Intake Total 650 ml 3460 ml 600 ml Balance 650 ml 3460 ml 600 ml Exam GENERAL: The patient is a well-developed, well-nourished female who is alert, responsive, complaining of headaches. No acute distress. CHEST: Decreased breath sounds at the bases. HEART: Without murmur or gallop. ABDOMEN: Soft, nontender without organosplenomegaly or masses. EXTREMITIES: Without cyanosis, clubbing, edema. Results Result Diagram: 01/31/17 0500 01/31/17 0500 Results 24 hrs Laboratory Tests Test 01/31/17 05:00 01/31/17 09:11 White Blood Count 6.4 # Red Blood Count 4.49 Hemoglobin 11.5 L Hematocrit 36.2 L Mean Corpuscular Volume 80.6 L Mean Corpuscular Hemoglobin 25.6 L Mean Corpuscular Hemoglobin Concent 31.8 L Red Cell Distribution Width 12.9 Platelet Count 240 Mean Platelet Volume 10.7 H Neutrophils % 43.0 Lymphocytes % 40.0 Monocytes % 11.0 Eosinophils % 6.0 Neutrophils # 2.8 Lymphocytes # 2.6 Monocytes # 0.7 Eosinophils # 0.4 Sodium Level 139 Potassium Level 3.4 L Chloride Level 106 Carbon Dioxide Level 27 Anion Gap 9 Blood Urea Nitrogen 8 Creatinine 0.61 Glucose Level 143 Calcium Level 8.4 Vancomycin Level Trough 9.0 L Medications Medications Current Medications Ondansetron HCl (Zofran Inj) 4 mg Q6H PRN IV NAUSEA AND/OR VOMITING Last administered on 01/29/17 20:01; Admin Dose 4 MG; Start 01/29/17 at 17:00 Acetaminophen (Tylenol Tab) 650 mg Q6H PRN PO PAIN LEVEL 1-3 OR FEVER Last administered on 01/31/17 03:52; Admin Dose 650 MG; Start 01/29/17 at 17:00 Acetaminophen (Tylenol Supp) 650 mg Q6H PRN [place] PAIN LEVEL 1-3 OR FEVER; Start 01/29/17 at 17:00 Acetaminophen/ Hydrocodone Bitart ([place] (5/325)) 1 tab Q6H PRN PO MODERATE PAIN LEVEL 4-6; Start 01/29/17 at 17:00 Acetaminophen/ Hydrocodone Bitart ([place] (5/325)) 2 tab Q6H PRN PO SEVERE PAIN LEVEL 7-10; Start 01/29/17 at 17:00 Docusate Sodium (Colace) 100 mg Q12H PRN PO CONSTIPATION; Start 01/29/17 at 17: 00 Magnesium Hydroxide (Milk Of Mag) 30 ml DAILY PRN PO CONSTIPATION; Start at 17:00 Bisacodyl (Dulcolax Supp) 10 mg DAILY PRN [place] CONSTIPATION; Start 01/29/17 at 17 :00 Heparin Sodium (Porcine) (Heparin (5000 Units/0.5 ml)) 5,000 unit Q12 SC Last administered on 01/31/17 09:47; Admin Dose 5,000 UNIT; Start 01/29/17 at 21:00 Loratadine (Claritin) 10 mg DAILY PO Last administered on 01/31/17 09:40; Admin Dose 10 MG; Start 01/30/17 at 09:00 Acetaminophen/ Butalbital/ Caffeine (Fioricet) 2 tab Q4H PRN PO cephalgia; Start 01/29/17 at 17:00 Morphine Sulfate 1 mg 1 mg Q4H PRN IV SEVERE PAIN LEVEL 7-10; Start 01/30/17 at 11:00 Potassium Chloride/Dextrose/ Sod Cl (D5-1/2ns + KCl 10 Meq) 1,000 ml @ 50 mls/ hr Q20H IV Last administered on 01/30/17 12:41; Admin Dose 50 MLS/HR; Start at 11:30 Famotidine (Pepcid) 20 mg Q12 PO Last administered on 01/31/17 09:40; Admin Dose 20 MG; Start 01/30/17 at 21:00 LINDSAY REESE MD January 31, 2017 16:50
[2017-01-31] MEDS ORDERED: POTASSIUM CHLORIDE (SR) 20 MEQ TAB PO STA (16:51)
[2017-01-31 19:30] VITALS: BP 137/78; RESP 18
[2017-01-31] MEDS ORDERED: VANCOMYCIN 1.25 GM in SOD CHLORIDE 0.9% 250 ML IVPB SCH (22:00)
[2017-02-01] MEDS: D5W-0.45 NACL + KCL 10 MEQ 1,000 ML IV SCH ×2 (02:33→23:30)
[2017-02-01] MEDS: ACETAMINOPHEN 325 MG TAB PO PRN ×2 (04:20→16:48)
[2017-02-01 08:00] VITALS: BP 132/75; RESP 16
[2017-02-01] MEDS: FAMOTIDINE 20 MG TAB PO SCH ×2 (09:05→20:48)
[2017-02-01] MEDS: LORATADINE 10 MG TAB PO SCH (09:05)
[2017-02-01] MEDS: HEPARIN 5,000 UNIT/0.5 ML VIAL SC SCH ×2 (09:10→20:55)
[2017-02-01] MEDS ORDERED: POTASSIUM CHLORIDE (SR) 20 MEQ TAB PO STA (13:30)
--- NOTE | 2017-02-01 14:14 | CONS ---
Date/Time of Note Date/Time of Note DATE: 02/01/17 TIME: 14:13 Assessment/Plan Assessment/Plan Chief Complaint/Hosp Course SUBJECTIVE: Patient is alert, feels good, sitting up in a chair, looks comfortable, no fevers. MICROBIOLOGY: CSF cultures negative. PHYSICAL EXAMINATION: GENERAL: This is a well-developed, well-nourished, middle-aged woman who is alert, in no distress. HEENT: Head atraumatic, normocephalic. Sclerae anicteric. Buccal mucosa dry. NECK: Supple, trachea midline. CHEST: Rise symmetrical. Breath sounds clear. HEART: S1, S2. ABDOMEN: Soft. Bowel tones present. EXTREMITIES: Without cyanosis. ASSESSMENT: 1. Viral meningitis, CSF cultures negative 2. Systemic inflammatory response syndrome. PLAN: Improving, off abx, continue supportive care DW staff Problems: Consultation Date/Type/Reason Admit Date/Time January 29, 2017 at 15:24 Type of Consultation: ID Exam/Review of Systems Vital Signs Vitals Vital Signs Date Time Temp Pulse Resp B/P Pulse Ox O2 Delivery O2 Flow Rate FiO2 02/01/17 08:00 98.4 74 16 132/75 99 01/29/17 20:23 Room Air Intake and Output 01/31/17 01/31/17 02/01/17 15:00 23:00 07:00 Intake Total 1140 ml 650 ml Balance 1140 ml 650 ml Results Result Diagram: 01/31/17 0500 01/31/17 0500 Medications Medications Current Medications Ondansetron HCl (Zofran Inj) 4 mg Q6H PRN IV NAUSEA AND/OR VOMITING Last administered on 01/29/17 20:01; Admin Dose 4 MG; Start 01/29/17 at 17:00 Acetaminophen (Tylenol Tab) 650 mg Q6H PRN PO PAIN LEVEL 1-3 OR FEVER Last administered on 02/01/17 04:20; Admin Dose 650 MG; Start 01/29/17 at 17:00 Acetaminophen (Tylenol Supp) 650 mg Q6H PRN [place] PAIN LEVEL 1-3 OR FEVER; Start 01/29/17 at 17:00 Acetaminophen/ Hydrocodone Bitart ([place] (5/325)) 1 tab Q6H PRN PO MODERATE PAIN LEVEL 4-6; Start 01/29/17 at 17:00 Acetaminophen/ Hydrocodone Bitart ([place] (5/325)) 2 tab Q6H PRN PO SEVERE PAIN LEVEL 7-10; Start 01/29/17 at 17:00 Docusate Sodium (Colace) 100 mg Q12H PRN PO CONSTIPATION; Start 01/29/17 at 17: 00 Magnesium Hydroxide (Milk Of Mag) 30 ml DAILY PRN PO CONSTIPATION; Start at 17:00 Bisacodyl (Dulcolax Supp) 10 mg DAILY PRN [place] CONSTIPATION; Start 01/29/17 at 17 :00 Heparin Sodium (Porcine) (Heparin (5000 Units/0.5 ml)) 5,000 unit Q12 SC Last administered on 02/01/17 09:10; Admin Dose 5,000 UNIT; Start 01/29/17 at 21:00 Loratadine (Claritin) 10 mg DAILY PO Last administered on 02/01/17 09:05; Admin Dose 10 MG; Start 01/30/17 at 09:00 Acetaminophen/ Butalbital/ Caffeine (Fioricet) 2 tab Q4H PRN PO cephalgia; Start 01/29/17 at 17:00 Morphine Sulfate 1 mg 1 mg Q4H PRN IV SEVERE PAIN LEVEL 7-10; Start 01/30/17 at 11:00 Potassium Chloride/Dextrose/ Sod Cl (D5-1/2ns + KCl 10 Meq) 1,000 ml @ 50 mls/ hr Q20H IV Last administered on 01/31/17 23:51; Admin Dose 50 MLS/HR; Start at 11:30 Famotidine (Pepcid) 20 mg Q12 PO Last administered on 02/01/17 09:05; Admin Dose 20 MG; Start 01/30/17 at 21:00 LAILA LOUISE NP February 01, 2017 14:14
[2017-02-01 19:30] VITALS: BP 125/75; RESP 18
--- NOTE | 2017-02-01 20:37 | PN ---
Date/Time of Note Date/Time of Note DATE: 02/01/17 TIME: 20:36 Assessment/Plan VTE Prophylaxis VTE Prophylaxis Intervention: SCD's Lines/Catheters IV Catheter Type (from Nrsg): Peripheral IV Urinary Cath still in place: No Assessment/Plan Assessment/Plan 1. Meningitis. possibley viral as per ID 2. History of seasonal allergies.on claritin 3. Cephalgia secondary to menigitia 4. Acute Urinary retention Plan: D/c NS, start D51/2 NS at 50 cc/ hr then stop Continue current care Ambulate with assistance d/c home tomorrow Subjective 24 Hr Interval Summary Free Text/Dictation c/o left neck pain, headache improving, BP stable Exam/Review of Systems Vital Signs Vitals Vital Signs Date Time Temp Pulse Resp B/P Pulse Ox O2 Delivery O2 Flow Rate FiO2 02/01/17 19:30 98.5 78 18 125/75 96 01/29/17 20:23 Room Air Intake and Output 01/31/17 01/31/17 02/01/17 15:00 23:00 07:00 Intake Total 1140 ml 650 ml Balance 1140 ml 650 ml Exam GENERAL: The patient is a well-developed, well-nourished female who is alert, responsive, complaining of headaches. No acute distress. SKIN: Without generalized rash. HEENT: Within normal limits. NECK: Supple. LYMPH NODES: None palpable. CHEST: Decreased breath sounds at the bases. HEART: Without murmur or gallop. ABDOMEN: Soft, nontender without organosplenomegaly or masses. EXTREMITIES: Without cyanosis, clubbing, edema. RECTAL AND GENITAL: Deferred. NEUROLOGICAL: Within normal limits. She has normal mental status. She does have an anal fissure. Results Result Diagram: 01/31/17 0500 01/31/17 0500 Medications Medications Current Medications Ondansetron HCl (Zofran Inj) 4 mg Q6H PRN IV NAUSEA AND/OR VOMITING Last administered on 01/29/17 20:01; Admin Dose 4 MG; Start 01/29/17 at 17:00 Acetaminophen (Tylenol Tab) 650 mg Q6H PRN PO PAIN LEVEL 1-3 OR FEVER Last administered on 02/01/17 16:48; Admin Dose 650 MG; Start 01/29/17 at 17:00 Acetaminophen (Tylenol Supp) 650 mg Q6H PRN [place] PAIN LEVEL 1-3 OR FEVER; Start 01/29/17 at 17:00 Acetaminophen/ Hydrocodone Bitart ([place] (5/325)) 1 tab Q6H PRN PO MODERATE PAIN LEVEL 4-6; Start 01/29/17 at 17:00 Acetaminophen/ Hydrocodone Bitart ([place] (5/325)) 2 tab Q6H PRN PO SEVERE PAIN LEVEL 7-10; Start 01/29/17 at 17:00 Docusate Sodium (Colace) 100 mg Q12H PRN PO CONSTIPATION; Start 01/29/17 at 17: 00 Magnesium Hydroxide (Milk Of Mag) 30 ml DAILY PRN PO CONSTIPATION; Start at 17:00 Bisacodyl (Dulcolax Supp) 10 mg DAILY PRN [place] CONSTIPATION; Start 01/29/17 at 17 :00 Heparin Sodium (Porcine) (Heparin (5000 Units/0.5 ml)) 5,000 unit Q12 SC Last administered on 02/01/17 09:10; Admin Dose 5,000 UNIT; Start 01/29/17 at 21:00 Loratadine (Claritin) 10 mg DAILY PO Last administered on 02/01/17 09:05; Admin Dose 10 MG; Start 01/30/17 at 09:00 Acetaminophen/ Butalbital/ Caffeine (Fioricet) 2 tab Q4H PRN PO cephalgia; Start 01/29/17 at 17:00 Morphine Sulfate 1 mg 1 mg Q4H PRN IV SEVERE PAIN LEVEL 7-10; Start 01/30/17 at 11:00 Potassium Chloride/Dextrose/ Sod Cl (D5-1/2ns + KCl 10 Meq) 1,000 ml @ 50 mls/ hr Q20H IV Last administered on 01/31/17 23:51; Admin Dose 50 MLS/HR; Start at 11:30 Famotidine (Pepcid) 20 mg Q12 PO Last administered on 02/01/17 09:05; Admin Dose 20 MG; Start 01/30/17 at 21:00 LINDSAY REESE MD February 01, 2017 20:37
[2017-02-02] MEDS: D5W-0.45 NACL + KCL 10 MEQ 1,000 ML IV SCH ×2 (01:00→21:46)
[2017-02-02] MEDS ORDERED: VITAMIN A & D 5 GM OINT PACKET TOP ONE ×2 (01:04→08:42)
[2017-02-02 07:52] VITALS: BP 118/60; RESP 19
[2017-02-02 07:56] VITALS: BP 118/60; RESP 18
[2017-02-02] MEDS: LORATADINE 10 MG TAB PO SCH (08:49)
[2017-02-02] MEDS: FAMOTIDINE 20 MG TAB PO SCH ×2 (08:49→21:47)
[2017-02-02] MEDS: HEPARIN 5,000 UNIT/0.5 ML VIAL SC SCH ×2 (09:02→21:52)
--- NOTE | 2017-02-02 17:40 | PN ---
Date/Time of Note Date/Time of Note DATE: 02/02/17 TIME: 17:39 Assessment/Plan VTE Prophylaxis VTE Prophylaxis Intervention: SCD's Lines/Catheters IV Catheter Type (from Nrsg): Peripheral IV Urinary Cath still in place: No Assessment/Plan Assessment/Plan 1. Meningitis. possibley viral as per ID 2. History of seasonal allergies.on claritin 3. Cephalgia secondary to menigitia 4. Acute Urinary retention Plan: still c/o headache with blurry vision now resolved Continue current care Ambulate with assistance d/c home tomorrow Subjective 24 Hr Interval Summary Free Text/Dictation doing better c/o headache, BP stable Exam/Review of Systems Vital Signs Vitals Vital Signs Date Time Temp Pulse Resp B/P Pulse Ox O2 Delivery O2 Flow Rate FiO2 02/02/17 07:56 98.6 68 18 118/60 97 01/29/17 20:23 Room Air Intake and Output 02/01/17 02/01/17 02/02/17 15:00 23:00 07:00 Intake Total 800 ml 1320 ml 1750 ml Balance 800 ml 1320 ml 1750 ml Results Result Diagram: 01/31/17 0500 01/31/17 0500 Medications Medications Current Medications Ondansetron HCl (Zofran Inj) 4 mg Q6H PRN IV NAUSEA AND/OR VOMITING Last administered on 01/29/17 20:01; Admin Dose 4 MG; Start 01/29/17 at 17:00 Acetaminophen (Tylenol Tab) 650 mg Q6H PRN PO PAIN LEVEL 1-3 OR FEVER Last administered on 02/01/17 16:48; Admin Dose 650 MG; Start 01/29/17 at 17:00 Acetaminophen (Tylenol Supp) 650 mg Q6H PRN [place] PAIN LEVEL 1-3 OR FEVER; Start 01/29/17 at 17:00 Acetaminophen/ Hydrocodone Bitart ([place] (5/325)) 1 tab Q6H PRN PO MODERATE PAIN LEVEL 4-6; Start 01/29/17 at 17:00 Acetaminophen/ Hydrocodone Bitart ([place] (5/325)) 2 tab Q6H PRN PO SEVERE PAIN LEVEL 7-10; Start 01/29/17 at 17:00 Docusate Sodium (Colace) 100 mg Q12H PRN PO CONSTIPATION; Start 01/29/17 at 17: 00 Magnesium Hydroxide (Milk Of Mag) 30 ml DAILY PRN PO CONSTIPATION; Start at 17:00 Bisacodyl (Dulcolax Supp) 10 mg DAILY PRN [place] CONSTIPATION; Start 01/29/17 at 17 :00 Heparin Sodium (Porcine) (Heparin (5000 Units/0.5 ml)) 5,000 unit Q12 SC Last administered on 02/02/17 09:02; Admin Dose 5,000 UNIT; Start 01/29/17 at 21:00 Loratadine (Claritin) 10 mg DAILY PO Last administered on 02/02/17 08:49; Admin Dose 10 MG; Start 01/30/17 at 09:00 Acetaminophen/ Butalbital/ Caffeine (Fioricet) 2 tab Q4H PRN PO cephalgia; Start 01/29/17 at 17:00 Morphine Sulfate 1 mg 1 mg Q4H PRN IV SEVERE PAIN LEVEL 7-10; Start 01/30/17 at 11:00 Potassium Chloride/Dextrose/ Sod Cl (D5-1/2ns + KCl 10 Meq) 1,000 ml @ 50 mls/ hr Q20H IV Last administered on 02/02/17 01:00; Admin Dose 50 MLS/HR; Start at 11:30 Famotidine (Pepcid) 20 mg Q12 PO Last administered on 02/02/17 08:49; Admin Dose 20 MG; Start 01/30/17 at 21:00 LINDSAY REESE MD February 02, 2017 17:40
[2017-02-02 19:49] VITALS: BP 114/61; RESP 20
[2017-02-03] MEDS: ACETAMINOPHEN 325 MG TAB PO PRN (03:10)
[2017-02-03 08:07] VITALS: BP 111/63; RESP 18
[2017-02-03] MEDS: FAMOTIDINE 20 MG TAB PO SCH (09:18)
[2017-02-03] MEDS: LORATADINE 10 MG TAB PO SCH (09:18)
[2017-02-03] MEDS: HEPARIN 5,000 UNIT/0.5 ML VIAL SC SCH (09:22)
--- NOTE | 2017-02-03 13:47 | PDOCDIS ---
Discharge Instructions CONDITION Patient Condition: Good HOME CARE INSTRUCTIONS: Special Diet: Regular except meat/poultry ACTIVITY: Activity Restrictions: Slowly Increase Activity Rest between Activity Avoid heavy lifting Avoid Heavy Housework FOLLOW UP/APPOINTMENTS Appointments Follow up with her own PMD in 1-2 week, if no PMD then follow up at [facility] LINDSAY REESE MD February 03, 2017 13:47
[2017-02-03] MEDS ORDERED: LORA10TA3 PO (13:48)
[2017-02-03] MEDS ORDERED: ACET325T40 PO (13:48)
== END 2017-02-03 15:10 | disposition home or self-care (01) | DRG 75 ==
LOC: E/R 10:44 → MS2 15:24
PROVIDERS: ADMIT Internal Medicine; ATTEND Internal Medicine
PROC: 009U3ZX Drainage of Spinal Canal, Percutaneous Approach, Diagnostic (ICD-10-PCS; principal; 2017-01-29)
DX: A87.9 Viral meningitis, unspecified (principal); R65.10 Systemic inflammatory response syndrome (SIRS) of non-infectious origin without acute organ dysfunction; R33.9 Retention of urine, unspecified; K60.2 Anal fissure, unspecified
CPT/HCPCS: 36415; 70450; 71010; 80048; 80053; 80061; 80202; 81001; 81003; 82945; 83036; 83735; 84100; 84157; 84436; 84443; 84479; 84703; 85025; 85610; 85730; 86694; 87040; 87070; 87086; 89050; 96374; 96375; J1644; J2270; J2405; J2765; J3370; J3480; J7030; J7040; J7050

== ENCOUNTER 2017-02-05 10:37 | Emergency (ER) | payer MEDICAID ==
[~2017-02-05] VITALS: Ht 160 cm; Wt 89.0 kg
[~2017-02-05 10:37] MED LIST changes: +ACET325T40 PO; -CEPH-443 PO; -HYDR-906 PO; -IBUP-1542 PO; +LORA10TA3 PO; -PHEN-537 PO; -SULF1TAB31 PO
[2017-02-05 10:42] VITALS: Ht 160 cm; Wt 89.0 kg
[2017-02-05] MEDS ORDERED: ACETAMINOPHEN 500 MG TAB PO STA (11:41)
[2017-02-05 12:31] LABS: ADD UMIC YES; URINE BILIRUBIN (Dip) NEGATIVE (NEGATIVE); URINE BLOOD (Dip) TRACE (NEGATIVE); URINE COLOR LT. YELLOW (YELLOW); URINE GLUCOSE (Dip) NEGATIVE (NEGATIVE); URINE KETONES (Dip) NEGATIVE (NEGATIVE); URINE LEUKOCYTE ESTERASE (Dip) NEGATIVE (NEGATIVE); URINE NITRITE (Dip) NEGATIVE (NEGATIVE); URINE TOTAL PROTEIN (Dip) NEGATIVE (NEGATIVE); URINE UROBILINOGEN (Dip) 0.2 E.U./dL (0.1-1.0)
[2017-02-05 12:45] LABS: URINE RBCS 0-2 /HPF (0)
[2017-02-05] MEDS ORDERED: IBUPROFEN 600 MG TAB PO ONE (13:30)
[2017-02-05] MEDS ORDERED: PHENAZOPYRIDINE 100 MG TAB PO ONE (13:30)
[2017-02-05] MEDS ORDERED: PHEN-538 PO (14:00)
--- NOTE | 2017-02-05 14:05 | ERD ---
ER Documentation Chief Complaint Date/Time DATE: 02/05/17 TIME: 14:03 Chief Complaint urinary retention, urgency to urinate HPI This 56-year-old female complains of inability urinate since yesterday. History significant for recent hospitalization for headache with the disposition of viral meningitis. Headache is resolved. She's had some intermittent sensation of dysuria and was seen prior to that but had a normal urine. She's never had urinary retention prior to this. She denies constipation and had a normal bowel movement yesterday. ROS All systems reviewed and are negative except as per history of present illness. Medications Home Meds Active Scripts Phenazopyridine Hcl* (Pyridium*) 200 Mg Tab, 200 MG PO TID Y for URINARY PAIN, # 6 TAB Prov:YADIEL EVANGELISTA MD 02/05/17 Loratadine* (Loratadine*) 10 Mg Tablet, 10 MG PO DAILY, #30 TAB Prov:LINDSAY REESE MD 02/03/17 Acetaminophen (MAPAP) 325 Mg Tablet, 650 MG PO Q6H Y for PAIN LEVEL 1-3 OR FEVER , #30 TAB Prov:LINDSAY REESE MD 02/03/17 Discontinued Scripts Ibuprofen* (Motrin*) 600 Mg Tab, 600 MG PO Q6, #30 TAB Prov:DEISI SALAZAR PA-C 01/23/17 Phenazopyridine Hcl* (Pyridium*) 100 Mg Tab, 100 MG PO TID, #12 TAB Prov:DEISI SALAZAR PA-C 01/23/17 Hydrocodone/Acetaminophen ([place] 5-325 Tablet) 1 Each Tablet, 1 TAB PO Q6H Y for PAIN, #7 TAB Prov:DEISI SALAZAR PA-C 01/23/17 Cephalexin* (Keflex*) 500 Mg Capsule, 500 MG PO QID for 7 Days, CAP Prov:DEISI SALAZAR PA-C 01/23/17 Sulfamethoxazole/Trimethoprim* (Bactrim Ds* Tablet) 1 Each Tablet, 1 TAB PO BID , #14 TAB Prov:DEISI SALAZAR PA-C 01/23/17 Allergies Allergies: Coded Allergies: No Known Allergy (Unverified , 01/29/17) PMhx/Soc History of Surgery: Yes (Appendectomy 10 years ago) Anesthesia Reaction: No Hx Neurological Disorder: No Hx Respiratory Disorders: No Hx Cardiac Disorders: No Hx Psychiatric Problems: No Hx Miscellaneous Medical Probl: No Hx Alcohol Use: No Hx Substance Use: No Hx Tobacco Use: No Physical Exam Vitals Vital Signs Date Time Temp Pulse Resp B/P Pulse Ox O2 Delivery O2 Flow Rate FiO2 02/05/17 10:42 98.1 89 18 149/77 99 Physical Exam Const: [] Alert, not ill-appearing. Uncomfortable due to inability to urinate. Head: Atraumatic Eyes: Normal Conjunctiva ENT: Normal External Ears, Nose and Mouth. Neck: Full range of motion..~ No meningismus. Resp: Clear to auscultation bilaterally Cardio: Regular rate and rhythm, no murmurs Abd: Soft, distended suprapubic area but no rebound tenderness. No Rodriguez sign., non distended. Normal bowel sounds Skin: No petechiae or rashes Back: No midline or flank tenderness Ext: No cyanosis, or edema Neur: Awake and alert Psych: Normal Mood and Affect Results 24 hrs Laboratory Tests Test 02/05/17 12:07 Urine Color LT. YELLOW Urine Clarity CLEAR Urine pH 5.5 Urine Specific [place] 1.010 Urine Ketones NEGATIVE Urine Nitrite NEGATIVE Urine Bilirubin NEGATIVE Urine Urobilinogen 0.2 E.U./dL Urine Leukocyte Esterase NEGATIVE Urine Microscopic RBC 0-2/HPF Urine Microscopic WBC NONE SEEN/HPF Urine Hemoglobin TRACE Urine Glucose NEGATIVE% Urine Total Protein NEGATIVE Current Medications Medications (Trade) Dose Ordered Sig/[place] Route PRN Reason Start Time Stop Time Status Last Admin Dose Admin Acetaminophen (Tylenol Tab) 500 mg ONCE STAT PO 02/05/17 11:41 02/05/17 11:42 DC 02/05/17 11:47 Ibuprofen (Motrin) 600 mg ONCE ONCE PO 02/05/17 13:30 02/05/17 13:31 DC 02/05/17 13:07 Phenazopyridine HCl (Pyridium) 200 mg ONCE ONCE PO 02/05/17 13:30 02/05/17 13:31 DC 02/05/17 13:34 Procedures/MDM Tucker catheter was placed. 1 L of urine was allowed to drain. Urine is negative for leukocytes, nitrites, hemoglobin. Catheter was removed. Patient since with urinary retention for review of medications given a hospital significant for opiates and Reglan. He states that incision of inability urine it may have started after 1 medications. Patient shows no signs or symptoms to suggest acute abdomen, appendicitis. She'll be discharged home with further observation , Pyridium instructions to urinate every 1-2 hours bladder empty she should return for persistent symptoms or inability urinate otherwise follow-up with urology for persistent symptoms. The patient was stable with no new complaints during the ER course. Clinically, there is no current evidence to suggest meningitis, sepsis, acute abdomen, pneumonia, acute coronary syndrome, pulmonary embolism, or any other emergent condition appearing to require further evaluation or hospitalization. The patient should certainly return for any new or worsening symptoms per the aftercare instructions. They should otherwise follow-up with her primary care doctor for reevaluation this week. Departure Diagnosis: Primary Impression: Urinary retention Condition: Stable Patient Instructions: Urinary Retention, Female Referrals: AILYN COLLADO MD, BRIAN E LEFF,IRVIN Miller MD Additional Instructions: Urinate regularly every 1-2 hours. Recheck for recurrent symptoms or for new or worsening symptoms-fever, vomiting. See urology for follow-up for persistent symptoms. YADIEL EVANGELISTA MD February 05, 2017 14:05
[2017-02-07] MEDS ORDERED: POLY17PO6 PO (15:03)
== END 2017-02-05 14:18 | disposition home or self-care (01) ==
LOC: FTE 10:37
DX: R33.9 Retention of urine, unspecified (principal)
CPT/HCPCS: 51702; 81001; 87086; Z7502; Z7610; 81003

== ENCOUNTER 2017-07-10 18:02 | Emergency (ER) | payer SELFPAY ==
[~2017-07-10 18:02] MED LIST changes: +PHEN-538 PO; +POLY17PO6 PO
== END 2017-07-10 19:36 | disposition left against medical advice (07) ==
LOC: E/R 18:02
DX: Z53.21 Procedure and treatment not carried out due to patient leaving prior to being seen by health care provider (principal)

== ENCOUNTER 2018-02-10 15:11 | Emergency (ER) | END 2018-02-10 16:02 | disposition home or self-care (01) ==